=== PATIENT | female | born 1960 | race Two or more races ===

== ENCOUNTER 2018-07-22 14:28 | Emergency (ER) | payer BC ==
[~2018-07-22] VITALS: Ht 160 cm; Wt 69.4 kg
[2018-07-22] MEDS ORDERED: CALCIUM500 M2 (15:18)
[2018-07-22] MEDS ORDERED: MAGNESIUM200 MG (15:18)
== END 2018-07-22 20:01 | disposition home or self-care (01) ==
LOC: ER 14:28
DX: K56.41 Fecal impaction (principal); K57.30 Diverticulosis of large intestine without perforation or abscess without bleeding; K63.89 Other specified diseases of intestine; R10.12 Left upper quadrant pain